=== PATIENT | male | born 1980 | race Caucasian/White ===

== ENCOUNTER 2020-01-06 16:01 | Inpatient (IN) | payer OTHER ==
[~2020-01-06] VITALS: Ht 190.5 cm; Wt 126.0 kg
[2020-01-06 16:49] LABS: BASOPHILS ABSOLUTE AUTO 0.07 K/mm3 (0.00-0.23); BASOPHILS PERCENT AUTO 1 % (0-2); EOSINOPHILS ABSOLUTE AUTO 0.56 K/mm3 (0.00-0.68); EOSINOPHILS PERCENT AUTO 7 % (0-6); Hematocrit 39.5 % (37.0-53.0); Hemoglobin 13.5 g/dL (13.5-17.5); IMMATURE GRAN ABSOLUTE AUTO 0.02 K/mm3 (0.00-0.10); IMMATURE GRAN PERCENT AUTO 0 % (0-1); LYMPHOCYTES ABSOLUTE AUTO 1.57 K/mm3 (0.84-5.20); LYMPHOCYTES PERCENT AUTO 21 % (21-46); MONOCYTES ABSOLUTE AUTO 0.51 K/mm3 (0.16-1.47); MONOCYTES PERCENT AUTO 7 % (4-13); Mean Corpuscular HGB 30.5 pg (26.0-34.0); Mean Corpuscular HGB Conc 34.2 g/dL (31.5-36.5); Mean Corpuscular Volume 89 fL (80-100); Mean Platelet Volume 10.2 fL (9.1-12.4); NEUTROPHILS ABSOLUTE AUTO 4.81 K/mm3 (1.96-9.15); NEUTROPHILS PERCENT AUTO 64 % (41-73); Platelet Count 236 K/mm3 (150-400); RDW Coefficient Variation 11.8 % (11.7-14.2); RDW Standard Deviation 37.8 fL (35.1-46.3); Red Blood Cell Count 4.42 M/mm3 (4.30-5.90); White Blood Cell Count 7.54 K/mm3 (4.00-11.30)
[2020-01-06 17:18] LABS: Anion Gap 7 mmol/L (6-16); Blood Urea Nitrogen 12 mg/dL (8-24); Bun/Creatinine Ratio 12.9 (12.0-20.0); CO2, Blood 25 mmol/L (21-32); Calcium, Blood 9.4 mg/dL (8.5-10.1); Chloride, Blood 111 mmol/L (98-108); Creatinine, Blood 0.93 mg/dL (0.60-1.20); Glomerular Filtration Rate >60 (60-); Glucose, Blood 96 mg/dL (70-99); Potassium, Blood 4.2 mmol/L (3.5-5.5); Sodium, Blood 143 mmol/L (136-145)
[2020-01-06 19:53] LABS: International Normalized Ratio 0.92; Prothrombin Time Results 9.9 Sec (9.7-11.5)
--- NOTE | 2020-01-06 22:30 | NUR ---
ADMISSION NOTE RECEIVED HAND OFF FROM Cindi WHITEHEAD RN USING SBAR. TRANSPORTED TO ROOM 228 VIA STRETCHER. TRANSFERED TO BED WITH STAFF ASSITANCE, TOLERATED WELL. AAO X4, ALFREDO, FOLLOWS ALL COMMANDS. ORIENTED TO ROOM, CALL SYSTEM, AND POC, VOICES UNDERSTANDING. RIGHT AC 18G PIV IS PATENT, INFUSING HEPARIN GTT AT 30.3ML/HR BASED ON 15UNITS/KG/HOUR ORDERS WITH AN ADJUSTED WEIGHT OF 101KG. RLE IS REPORTED PER RAD TO HAVE DVT FROM CALF TO MID THIGH. RLE SKIN TEMP NOTED WARMER THAN LLE. DISTAL PULSES AND WARMTH EQUAL BILATERALLY. VSS, BIOX AT BEDSIDE SHOWS HR IN 60'S AND O2 IN THE UPPER 90'S. TELE SHOWS NSR 66 ON APPLICATION PER GEN VASQUEZ. DENIES PAIN, DISCOMFORT, OR FURTHER NEEDS AT THIS TIME. ADMISSION ASSESSMENT IN PROGRESS. SAFETY MEASURES IN PLACE. WILL CONTINUE TO MONITOR.
[2020-01-06] MEDS ORDERED: IBUP200 PO (22:34)
[2020-01-07 03:17] LABS: BASOPHILS ABSOLUTE AUTO 0.07 K/mm3 (0.00-0.23); BASOPHILS PERCENT AUTO 1 % (0-2); EOSINOPHILS ABSOLUTE AUTO 0.66 K/mm3 (0.00-0.68); EOSINOPHILS PERCENT AUTO 10 % (0-6); Hematocrit 36.5 % (37.0-53.0); Hemoglobin 12.6 g/dL (13.5-17.5); IMMATURE GRAN ABSOLUTE AUTO 0.01 K/mm3 (0.00-0.10); IMMATURE GRAN PERCENT AUTO 0 % (0-1); LYMPHOCYTES ABSOLUTE AUTO 1.93 K/mm3 (0.84-5.20); LYMPHOCYTES PERCENT AUTO 30 % (21-46); MONOCYTES ABSOLUTE AUTO 0.42 K/mm3 (0.16-1.47); MONOCYTES PERCENT AUTO 7 % (4-13); Mean Corpuscular HGB 30.4 pg (26.0-34.0); Mean Corpuscular HGB Conc 34.5 g/dL (31.5-36.5); Mean Corpuscular Volume 88 fL (80-100); Mean Platelet Volume 10.3 fL (9.1-12.4); NEUTROPHILS ABSOLUTE AUTO 3.29 K/mm3 (1.96-9.15); NEUTROPHILS PERCENT AUTO 52 % (41-73); Platelet Count 218 K/mm3 (150-400); RDW Coefficient Variation 11.6 % (11.7-14.2); Red Blood Cell Count 4.14 M/mm3 (4.30-5.90); White Blood Cell Count 6.38 K/mm3 (4.00-11.30)
[2020-01-07 03:31] LABS: Anion Gap 5 mmol/L (6-16); Blood Urea Nitrogen 13 mg/dL (8-24); Bun/Creatinine Ratio 13.3 (12.0-20.0); CO2, Blood 27 mmol/L (21-32); Calcium, Blood 8.8 mg/dL (8.5-10.1); Chloride, Blood 110 mmol/L (98-108); Creatinine, Blood 0.98 mg/dL (0.60-1.20); Glomerular Filtration Rate >60 (60-); Glucose, Blood 104 mg/dL (70-99); Potassium, Blood 4.1 mmol/L (3.5-5.5); Sodium, Blood 142 mmol/L (136-145)
--- NOTE | 2020-01-07 05:43 | NUR ---
SHIFT SUMMARY LYING IN LOW FOWLERS WITH EYES CLOSED. HAS RESTED WELL OFF AND ON SINCE ADMISSION AFTER BEING MEDICATED FOR PAIN X1 WITH TYLENOL. AMBULATED TO BATHROOM X1 WITH ASSISTANCE FOR BM, TOLERATED WELL. HEPARIN GTT IN PROGRESS, CHANGED PER EMAR, PHARMACY MANAGES. TELE REPORTED HR RUNNING IN SB 50'S FOR A WHILE AND DROPPING IN TO THE 40'S. PT REST AND ASYMPTOMATIC. NO FURTHER CHANGES SINCE ADMISSION. DENIES PAIN, DISCOMFORT, OR FURTHER NEEDS. SAFETY MEASURES IN PLACE. WILL CONTINUE TO MONITOR AND GIVE HAND OFF TO ONCOMING SHIFT USING SBAR.
--- NOTE | 2020-01-07 09:10 | NUR ---
dr arechiga consulting with pt; IVC filter to be placed
--- NOTE | 2020-01-07 15:51 | NUR ---
checked with [facility] for approximate time of intervention this shift, was given a time between [phone]; notified pt and SO
--- NOTE | 2020-01-07 16:26 | NUR ---
shift summary: vss, no acute changes, pt remained a/o x 4, pleasant/cooperative. SO with pt t/o shift. pt reports no SOB or CP; SPO2 remained >90% on BIOXX. pt has remained NPO all shift awaiting surgical intervention, IVC filter.
--- NOTE | 2020-01-07 18:32 | NUR ---
PT TRANSFERRED TO OIL PROSPECTING OBSERVER FOR PROCEDURE. PT WILL RETURN TO PCU 4 FOR RECOVERY. THIS RN CALLED REPORT TO PCU 4 RN APPROX 2 HRS AGO
--- NOTE | 2020-01-07 19:53 | NUR ---
ASSUMED CARE FRO OUTGOING INSPECTOR, PUCTURE SITE TO RIGHT GROIN SOFT NON TENDER COVERED WITH CLEAR DRESSING. SEE [facility] FOR FULL ASSESSMENT.
--- NOTE | 2020-01-08 05:30 | NUR ---
NO ADVERSE CHANGES SINCE SHIFT ASSESSMENT. R GROIN REMAINS SOFT NON TENDER, PATIENT RESTING IN BED WITH LIGHTS OFF. BED IN LOW POSTION, CALL LIGHT WITHIN REACH.
--- NOTE | 2020-01-08 08:00 | NUR ---
pt laying in bed awake a/ox3, pleasant and coopertive with care, follows commands well, denies pain, reports he slept well last night, lungs clear on r/a, hrr, tele in place running sb in the high 50's, no edema noted, ppp+2, cap refill <3sec, vs stable, afebrile, iv site is clear and patent, infusing heperin as ordered, btx4, abd flat soft nontender, voids without diff, skin c/w/d, teddy perez, call light in reach.
--- NOTE | 2020-01-08 12:14 | NUR ---
PT IS BEING DISCHARGED TO HOME, GOT SAMPLES OF ELIQUIS FOR HIM, AND SOME COUPONS, SPOKE TO DR. EVERETT, HE WANTS HIM TO TAKE 10MG BEFORE GOING HOME AND BE ON 10MG BID FOR SEVEN DAYS, THEN DROP DOWN TO 5MG. THIS WAS CALLED INTO [facility], COLTON DONALDSON WILL GIVE FIRST DOSE ONE HR LATER PER PHARMACY, S.O. IN ROOM WITH HIM. STATES HE'S BEEN UP TO BR AND DOING OK. CALL LIGHT IN REACH.
[2020-01-08] MEDS ORDERED: ELIQUIS5 MG PO (12:22)
--- NOTE | 2020-01-08 13:30 | NUR ---
went over all discharge instructions with pt, he verbalized understanding, iv removed intact, gave him samples of eliquis, and coupon, left via wheelchair with weed cutter and s.o. in attendence with all his belongings.
== END 2020-01-08 13:29 | disposition home or self-care (01) | DRG 299 ==
LOC: ER 16:01 → SURS 21:40 → ER 21:40 → SURS 21:43 → PCU 01-07 14:35
PROVIDERS: Nurse Practitioner Acute Care; Physician Assistant; ADMIT Family Medicine
PROC: 06H03DZ Insertion of Intraluminal Device into Inferior Vena Cava, Percutaneous Approach (ICD-10-PCS; principal; 2020-01-07)
DX: I82.411 Acute embolism and thrombosis of right femoral vein (principal); I26.99 Other pulmonary embolism without acute cor pulmonale; Z20.828 Contact with and (suspected) exposure to other viral communicable diseases; I82.441 Acute embolism and thrombosis of right tibial vein; E78.5 Hyperlipidemia, unspecified
CPT/HCPCS: 36415; 37191; 71260; 80048; 83880; 84484; 85025; 85610; 85730; 93005; 93010; 93971; 94762; 96365; 96376; 99152; 99284-25; A9270; C1769; C1880; G0378; J1644; J2250; J3010; J7030; J7040; J7120; Q9967; U0003

== ENCOUNTER 2020-03-23 12:34 | Day surgery (SDC) | payer OTHER ==
[~2020-03-23] VITALS: Ht 190.5 cm; Wt 129.0 kg
[~2020-03-23 12:34] MED LIST: ELIQUIS5 MG PO; IBUP200 PO
== END 2020-03-23 19:10 | disposition home or self-care (01) ==
LOC: MHTC 12:34
DX: Z45.89 Encounter for adjustment and management of other implanted devices (principal); E78.5 Hyperlipidemia, unspecified; Z86.711 Personal history of pulmonary embolism; Z86.718 Personal history of other venous thrombosis and embolism; Z79.01 Long term (current) use of anticoagulants; Z79.899 Other long term (current) drug therapy; Z88.5 Allergy status to narcotic agent; Z20.828 Contact with and (suspected) exposure to other viral communicable diseases
CPT/HCPCS: 37193; 76937; 99152; 99153; C1769; C1773; C1887; C1894; J1644; J2250; J3010; J7030; J7040; Q9967

== ENCOUNTER 2022-07-28 09:17 | Day surgery (SDC) | payer OTHER ==
[~2022-07-28] VITALS: Ht 190.5 cm; Wt 128.4 kg
[2022-07-28] MEDS ORDERED: TESTOSTERONE200 MG (09:26)
--- NOTE | 2022-07-28 10:36 | NUR ---
07/28/22 1036 Shell Self PT UPDATED ON DELAY IN START TIME DUE TO PREVIOUS CASE RUNNING LONGER THAN EXPECTED. ENCOURAGED PT TO NOTIFY OF DELAY WELL SO SHE WILL NOT GET WORRIED. BED IN LOW, LOCKED POSITION, CALL LIGHT IN REACH.
[2022-07-28 12:33] VITALS: BP 135/85
== END 2022-07-28 12:23 | disposition home or self-care (01) ==
LOC: ORSCSDS 09:17
PROVIDERS: Internal Medicine Gastroenterology
PROC: 0DB58ZX Excision of Esophagus, Via Natural or Artificial Opening Endoscopic, Diagnostic (ICD-10-PCS; principal; 2022-07-28 10:30)
PROC: 0D757ZZ Dilation of Esophagus, Via Natural or Artificial Opening (ICD-10-PCS; principal; 2022-07-28 10:30)
PROC: 0DB98ZX Excision of Duodenum, Via Natural or Artificial Opening Endoscopic, Diagnostic (ICD-10-PCS; principal; 2022-07-28 10:30)
DX: R13.10 Dysphagia, unspecified (principal); K20.0 Eosinophilic esophagitis; R23.4 Changes in skin texture; I10 Essential (primary) hypertension; Z86.718 Personal history of other venous thrombosis and embolism; Z79.01 Long term (current) use of anticoagulants; Z79.899 Other long term (current) drug therapy
CPT/HCPCS: 88305; 88312; J2704; J7120

== ENCOUNTER 2022-12-15 07:27 | Day surgery (SDC) | payer OTHER ==
[~2022-12-15 07:27] MED LIST changes: +TESTOSTERONE200 MG
== END 2022-12-15 22:37 | disposition home or self-care (01) ==
LOC: CT 07:27
DX: R94.39 Abnormal result of other cardiovascular function study (principal); I48.0 Paroxysmal atrial fibrillation; I11.9 Hypertensive heart disease without heart failure; I42.9 Cardiomyopathy, unspecified; Z86.718 Personal history of other venous thrombosis and embolism; Z86.711 Personal history of pulmonary embolism; Z86.16 Personal history of COVID-19
CPT/HCPCS: 75574; Q9967

== ENCOUNTER 2023-04-24 08:57 | Day surgery (SDC) | payer OTHER ==
[~2023-04-24 08:57] MED LIST changes: +DEPO-TESTO200 MG/1 M IM; +LOSA50 PO; +METO25ER PO; +MULTI-VITAMIN1 EAC2 PO; +OMEP20ER PO; +XARELTO20 MG PO
[2023-04-24] MEDS ORDERED: Clomiphene Citr50 MG (09:26)
[2023-04-24 11:14] VITALS: BP 120/62
== END 2023-04-24 11:23 | disposition home or self-care (01) ==
LOC: ORSCSDS 08:57
PROVIDERS: Internal Medicine Gastroenterology
PROC: 0DB58ZX Excision of Esophagus, Via Natural or Artificial Opening Endoscopic, Diagnostic (ICD-10-PCS; 2023-04-24)
PROC: 0D757ZZ Dilation of Esophagus, Via Natural or Artificial Opening (ICD-10-PCS; principal; 2023-04-24 10:15)
DX: K20.0 Eosinophilic esophagitis (principal); Z86.718 Personal history of other venous thrombosis and embolism; I10 Essential (primary) hypertension; E78.5 Hyperlipidemia, unspecified; G47.33 Obstructive sleep apnea (adult) (pediatric); Z86.16 Personal history of COVID-19; I48.0 Paroxysmal atrial fibrillation; Z68.35 Body mass index [BMI] 35.0-35.9, adult; Z79.01 Long term (current) use of anticoagulants; Z79.899 Other long term (current) drug therapy
CPT/HCPCS: 88305; J2250; J2704; J7120

== ENCOUNTER 2024-01-18 07:38 | Day surgery (SDC) | payer OTHER ==
[~2024-01-18] VITALS: Ht 190.5 cm; Wt 126.0 kg
[~2024-01-18 07:38] MED LIST changes: +Clomiphene Citr50 MG; +FENO160 PO; +FLUTICASONE PRO12 G1 INH; +Lactated Ringer's 1,000 ML IV ONE; +QVAR REDIHALE10.6 G2 PO
[2024-01-18] MEDS ORDERED: Lactated Ringer's 1,000 ML IV ONE (08:35)
[2024-01-18] MEDS ORDERED: propofoL 100 ML IV ONE (08:45)
[2024-01-18] MEDS ORDERED: Benzocaine Oral Spray 0.5ML UD ONE (08:58)
--- NOTE | 2024-01-18 09:03 | NUR ---
01/18/24 0903 Taylor Mena RN PULLED HURRICANE ONE SPRAY FOR DR. SCHMITZ TO GIVE PT IN PRE-OP FOR UPPER.
[2024-01-18 10:28] VITALS: BP 114/70
== END 2024-01-18 10:09 | disposition home or self-care (01) ==
LOC: ORSCSDS 07:38
DX: K20.90 Esophagitis, unspecified without bleeding (principal); Z12.11 Encounter for screening for malignant neoplasm of colon; D12.4 Benign neoplasm of descending colon; D12.3 Benign neoplasm of transverse colon; I48.0 Paroxysmal atrial fibrillation; Z86.711 Personal history of pulmonary embolism; Z86.718 Personal history of other venous thrombosis and embolism; Z79.899 Other long term (current) drug therapy
CPT/HCPCS: 88305; A9270; J2704; J7120